=== PATIENT | female | born 1965 | race African-American/Black ===

== ENCOUNTER 2019-05-23 09:45 | Inpatient (IN) | payer BC, OTHER ==
[2019-05-23 10:27] LABS: ABSOLUTE BASOPHILS # (AUTO) 0.1 10^3/uL (0.0-0.2); ABSOLUTE EOSINOPHILS # (AUTO) 0.2 10^3/uL (0.0-0.6); ABSOLUTE LYMPHOCYTES (AUTO) 1.5 10^3/uL (0.5-4.7); ABSOLUTE MONOCYTES (AUTO) 0.5 10^3/uL (0.1-1.4); ABSOLUTE NEUT (AUTO) 9.3 10^3/uL (1.7-8.2); BASOPHILS % (AUTO) 0.5 % (0-2); EOSINOPHILS % (AUTO) 2.1 % (0-6); HEMATOCRIT 40.5 % (36.0-47.0); HEMOGLOBIN 13.3 g/dL (12.0-15.5); LYMPHOCYTES % (AUTO) 12.8 % (13-45); MEAN CORPUSCULAR HEMOGLOBIN 28.1 pg (27.0-33.4); MEAN CORPUSCULAR HGB CONC 32.8 g/dL (32.0-36.0); MEAN CORPUSCULAR VOLUME 86 fl (80-97); MONOCYTES % (AUTO) 4.4 % (3-13); PLATELET COUNT 380 10^3/uL (150-450); RED BLOOD COUNT 4.73 10^6/uL (3.72-5.28); RED CELL DISTRIBUTION WIDTH 15.2 % (11.5-14.0); SEGMENTED NEUTROPHILS % (AUTO) 80.2 % (42-78); TOTAL CELLS COUNTED % (AUTO) 100 %; WHITE BLOOD COUNT 11.6 10^3/uL (4.0-10.5)
[2019-05-23 10:35] LABS: APPEARANCE,URINE CLEAR; BILIRUBIN,URINE NEGATIVE (NEGATIVE); COLOR,URINE YELLOW; GLUCOSE, URINE NEGATIVE (NEGATIVE); KETONES,URINE NEGATIVE (NEGATIVE); LEUKOCYTE ESTERASE,URINE NEGATIVE (NEGATIVE); NITRITE,URINE NEGATIVE (NEGATIVE); PROTEIN,URINE NEGATIVE (NEGATIVE); URINE SPECIFIC GRAVITY 1.014; UROBILINOGEN,URINE NEGATIVE mg/dL (<2.0)
[2019-05-23] MEDS ORDERED: METHYLPREDNISOLONE INJ 125 MG/2 ML SDV IV ONE (10:42)
[2019-05-23] MEDS ORDERED: DIPHENHYDRAMINE HCL 50 MG/ML VIAL IV ONE (10:42)
[2019-05-23] MEDS ORDERED: NORMAL SALINE 1000 ML 1,000 ML IV ONE (10:43)
[2019-05-23] MEDS ORDERED: MORPHINE SULFATE 10 MG/ML INJ IV ONE (10:43)
[2019-05-23] MEDS ORDERED: ONDANSETRON HCL INJ/PF 4 MG/2 ML SDV IV ONE (10:43)
[2019-05-23] MEDS ORDERED: FAMOTIDINE INJ/PF 20 MG/2 ML SDV IV ONE (10:45)
--- NOTE | 2019-05-23 10:45 | ER Document Report ---
ED Medical Screen (RME) - General Chief Complaint: Abdominal Pain Stated Complaint: ABDOMINAL PAIN Time Seen by Provider: 05/23/19 10:27 Mode of Arrival: Ambulatory Information source: Patient Notes: 53-year-old female patient with multiple abdominal surgeries presenting with abdominal pain. Patient reports pain has been going on for several months but is worsened over the last few days. She reports associated nausea and she believes she had a fever yesterday. Denies any diarrhea. Exam: Generalized tenderness to palpation. Patient reports itching with IV contrast, orders placed for Solu-Medrol, Pepcid and Benadryl prior to CT scan. I have greeted and performed a rapid initial assessment of this patient. A comprehensive ED assessment and evaluation of the patient, analysis of test results and completion of the medical decision making process will be conducted by additional ED providers. I have specifically instructed the patient or family members with the patient to immediately return to any nursing staff should anything change in the patient's condition or with their chief complaint. This medical record was dictated with voice recognizing software. There may be grammatical, syntax errors that are unintended. TRAVEL OUTSIDE OF THE [place] IN LAST 30 DAYS: No - Related Data Allergies/Adverse Reactions: ampicillin [From Polycillin] Allergy (Verified 05/23/19 09:50) ciprofloxacin Allergy (Verified 05/23/19 09:50) sulfamethoxazole [From Bactrim] Allergy (Verified 05/23/19 09:50) trimethoprim [From Bactrim] Allergy (Verified 05/23/19 09:50) clarirtin Allergy (Uncoded 05/23/19 09:50) kasey Allergy (Uncoded 05/23/19 09:50) Home Medications: zofran. keflex. reglan. januvia. atorvastatin. folic acid. zyrtec. (bladder medication). omeprazole. singulair. hydroxyzine. cymbalta Past Medical History - Social History Chew tobacco use (# tins/day): No Frequency of alcohol use: None Drug Abuse: None Pulmonary Medical History: Reports: Hx Asthma Endocrine Medical History: Reports: Hx Diabetes Mellitus Type 2 Past Surgical History: Reports: Hx Appendectomy - with tumor removal, Hx Hysterectomy Physical Exam - Vital signs Vitals: Temp Pulse Resp BP Pulse Ox 98.2 F 91 16 149/92 H 96 05/23/19 09:50 05/23/19 09:50 05/23/19 09:50 05/23/19 09:50 05/23/19 09:50 Course - Vital Signs Vital signs: Temp Pulse Resp BP Pulse Ox 98.2 F 91 16 149/92 H 96 05/23/19 09:50 05/23/19 09:50 05/23/19 09:50 05/23/19 09:50 05/23/19 09:50 - Laboratory Result Diagrams: 05/23/19 10:07 05/23/19 10:07 Laboratory results interpreted by me: 05/23/19 10:07 WBC 11.6 H RDW 15.2 H Lymph % (Auto) 12.8 L Absolute Neuts (auto) 9.3 H Seg Neutrophils % 80.2 H
[2019-05-23 10:59] LABS: ALBUMIN 4.2 g/dL (3.5-5.0); ALKALINE PHOSPHATASE 161 U/L (38-126); ANION GAP 10 (5-19); ASPARTATE AMINO TRANSFERASE 25 U/L (14-36); BILIRUBIN,DIRECT 0.1 mg/dL (0.0-0.4); BILIRUBIN,TOTAL 0.6 mg/dL (0.2-1.3); BLOOD UREA NITROGEN 12 mg/dL (7-20); CALCIUM 9.4 mg/dL (8.4-10.2); CARBON DIOXIDE 27 mmol/L (22-30); CHLORIDE 103 mmol/L (98-107); GLUCOSE 218 mg/dL (75-110); POTASSIUM 4.8 mmol/L (3.6-5.0); TOTAL PROTEIN 7.5 g/dL (6.3-8.2)
--- NOTE | 2019-05-23 12:16 | ER Document Report ---
ED General - General Chief Complaint: Abdominal Pain Stated Complaint: ABDOMINAL PAIN Time Seen by Provider: 05/23/19 10:27 Mode of Arrival: Ambulatory TRAVEL OUTSIDE OF THE [place] IN LAST 30 DAYS: No - HPI Notes: Ms. Rodriguez is a 53-year-old female visiting here from [place] with a chief complaint of acute exacerbation of chronic abdominal pain. This lady has a rather complicated medical history. 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 She subsequently had a secondary procedure of some type apparently for metastasis and ended up with a partial colectomy. Since then she has progressed to episodes of severe chronic recurrent abdominal pain. She has been extensively worked up by GI and apparently recently had an EGD which showed a large hiatal hernia. They have been giving her symptomatic treatment for this but have failed to adequately relieve her pain. She is currently not taking any narcotic analgesics by history. She drove down here from [place] 3 days ago. She has had no bowel movement since then and now reports she is having increasing pain in the left upper quadrant of her abdomen radiating through to her back. She is been nauseated but has not vomited. She denies fever chills. She denies current urinary symptoms but says she has been subject to recurrent UTIs previously. Other previous abdominal surgery has included hysterectomy and cholecystectomy. Pertinent prior history: Diabetes mellitus type 2 and hypertension. Denies use of tobacco or alcohol. - Related Data Allergies/Adverse Reactions: ampicillin [From Polycillin] Allergy (Verified 05/23/19 09:50) ciprofloxacin Allergy (Verified 05/23/19 09:50) sulfamethoxazole [From Bactrim] Allergy (Verified 05/23/19 09:50) trimethoprim [From Bactrim] Allergy (Verified 05/23/19 09:50) clarirtin Allergy (Uncoded 05/23/19 09:50) kasey Allergy (Uncoded 05/23/19 09:50) Home Medications: zofran. keflex. reglan. januvia. atorvastatin. folic acid. zyrtec. (bladder medication). omeprazole. singulair. hydroxyzine. cymbalta Past Medical History - General Information source: Patient, Relative - Social History Smoking Status: Never Smoker Chew tobacco use (# tins/day): No Frequency of alcohol use: None Drug Abuse: None Family History: Reviewed & Not Pertinent Patient has suicidal ideation: No Patient has homicidal ideation: No Pulmonary Medical History: Reports: Hx Asthma Endocrine Medical History: Reports: Hx Diabetes Mellitus Type 2 Psychiatric Medical History: Reports: Hx Depression Past Surgical History: Reports: Hx Appendectomy - with tumor removal, Hx Hysterectomy Review of Systems - Review of Systems Notes: Constitutional: Negative for fever. HENT: Negative for sore throat. Eyes: Negative for visual changes. Cardiovascular: Negative for chest pain. Respiratory: Negative for shortness of breath. Gastrointestinal: As per HPI . Genitourinary: As per HPI. Musculoskeletal: Negative for back pain. Skin: Negative for rash. Neurological: Negative for headaches, weakness or numbness. 10 point ROS negative except as marked above and in HPI. Physical Exam - Vital signs Vitals: Temp Pulse Resp BP Pulse Ox 98.2 F 91 16 149/92 H 96 05/23/19 09:50 05/23/19 09:50 05/23/19 09:50 05/23/19 09:50 05/23/19 09:50 - Notes Notes: GENERAL: Obese female appearing approximately her stated age who appears in mild discomfort. SKIN: Good turgor no rashes. HEAD: Normocephalic atraumatic. EYES: PERRLA. Conjunctivae and sclerae clear. EARS: CANALS AND TMS CLEAR. NOSE: CLEAR. MOUTH: Moist mucosa. Good dentition. No stridor or edema. No drooling. NECK: Supple. No masses or thyromegaly. No adenopathy. Carotids 2+ without bruits. No JVD. BACK: Symmetrical without tenderness. CHEST: Respirations unlabored. Breath sounds clear and symmetrical. HEART: Regular rhythm. No murmur gallop or rub. ABDOMEN: Multiple surgical scars present. Tenderness left upper quadrant. Active bowel sounds. No palpable masses organomegaly. No bruits. GENITALIA: Deferred. EXTREMITIES: 2+ brawny edema both lower legs consistent with chronic lymphedema. No calf tenderness. Cap refill less than 1.5 seconds. Dorsalis pedis and posterior tibial pulses 3+ and symmetrical. NEUROLOGICAL: GCS 15. Alert and oriented x3. Normal gait. Fluent speech. Cranial nerves II through XII intact. Sensorimotor and cerebellar normal. Normal tone. Psychiatric: Very flat affect. Course - Re-evaluation Re-evalutation: 05/23/19 17:18 Patient is received normal saline IV and remain n.p.o. while in the emergency department. White count was mildly elevated. She was noted to be somewhat tender in her left upper quadrant but did not have rebound. She is remained hemodynamically stable and afebrile. Comprehensive metabolic profile was unremarkable. CT abdomen/pelvis with IV and oral contrast suggests postsurgical changes and early partial small bowel obstruction. NG tube been placed and patient has been given additional IV fentanyl. Surgical consultation obtained with Dr. Mckinley who will admit the patient. - Vital Signs Vital signs: Temp Pulse Resp BP Pulse Ox 98.2 F 91 17 130/70 H 94 05/23/19 09:50 05/23/19 09:50 05/23/19 16:01 05/23/19 16:01 05/23/19 16:01 - Laboratory Result Diagrams: 05/23/19 10:07 05/23/19 10:07 Laboratory results interpreted by me: 05/23/19 05/23/19 10:07 10:07 WBC 11.6 H RDW 15.2 H Lymph % (Auto) 12.8 L Absolute Neuts (auto) 9.3 H Seg Neutrophils % 80.2 H Glucose 218 H Alkaline Phosphatase 161 H - EKG Interpretation by Me Additional EKG results interpreted by me: 05/23/19 13:29 Normal sinus rhythm. Rate 85. Normal axis. No acute ST/T wave changes. Discharge - Discharge Clinical Impression: Small bowel obstruction Condition: Good Disposition: ADMITTED INPATIENT Admitting Provider: Surgicalist Unit Admitted: Surgical Floor
[2019-05-23] MEDS: FENTANYL CITRATE INJ/PF 100 MCG/2 ML AMPUL IV PRN ×2 (13:48→17:21)
--- NOTE | 2019-05-23 16:27 | RADIOLOGY REPORT (SQ) ---
EXAM DESCRIPTION: CT ABD/PELVIS WITH IV ONLY COMPLETED DATE/TIME: 05/23/2019 1:24 pm REASON FOR STUDY: abdominal pain COMPARISON: None. TECHNIQUE: CT scan of the abdomen and pelvis performed using helical scanning technique with dynamic intravenous contrast injection. No oral contrast. Images reviewed with lung, soft tissue, and bone w indows. Reconstructed coronal and sagittal MPR images reviewed. Delayed images for evaluation of the urinary system also acquired. All images stored on PACS. All CT scanners at this facility use dose modulation, iterative reconstruction, and/or weight based d osing when appropriate to reduce radiation dose to as low as reasonably achievable (ALARA). [facility]: Dose Right [facility]: CareDose [facility]: Dose Right [facility]: Teradose 4D [facility]: Spotlime CONTRAST TYPE AND DOSE: contrast/concentration: Isovue 350.00 mg/ml; Total Contrast Delivered: 99.0 ml; Total Saline Delivered: 69.0 ml RENAL FUNCTION: GFR > 60. RADIATION DOSE: CT Rad equipment meets quality standard of care and radiation dose reduction techniq ues were employed. CTDIvol: 21.1 mGy. DLP: 3124 mGy-cm.. LIMITATIONS: None. FINDINGS: LOWER CHEST: No significant findings. LIVER: Normal size. No enhancing masses. No dilated ducts. SPLEEN: Normal size. No focal lesions. PANCREAS: No masses identified. No significant calcifications. No adjacent inflammation or peripancre atic fluid collections. Pancreatic duct not dilated. GALLBLADDER: Surgically absent. ADRENAL GLANDS: No significant masses. RIGHT KIDNEY AND URETER: No cysts identified. No solid masses identified. No calcified stones. No hyd ronephrosis or hydroureter. LEFT KIDNEY AND URETER: No cysts identified. No solid masses identified. No calcified stones. No hydr onephrosis or hydroureter. AORTA AND VESSELS: No aneurysm. No dissection. Renal arteries, SMA, celiac without significant stenos is. RETROPERITONEUM: No bulky retroperitoneal adenopathy. BOWEL AND PERITONEAL CAVITY: Possible developing small bowel obstruction. Mildly dilated loops of je junum deep to the umbilicus level with mild adjacent inflammatory changes and trace free fluid. APPENDIX: Surgically absent. PELVIS: Prior hysterectomy. Trace free fluid. Unremarkable bladder. ABDOMINAL WALL: No masses. No hernias. BONES: No acute findings. OTHER: No other significant finding. IMPRESSION: Possible developing small bowel obstruction. Mildly dilated loops of jejunum deep to th e umbilicus level with mild adjacent inflammatory changes and trace free fluid. COMMENT: The findings were sent to the Radiology Results Communication Center at 16:21 on to be communicated to a licensed caregiver. TECHNICAL DOCUMENTATION: JOB ID: [id number] [place]-72 Quality ID # [id number]: Final reports with documentation of one or more dose reduction techniques (e.g., Au tomated exposure control, adjustment of the mA and/or kV according to patient size, use of iterative reconstruction technique) 2010 [employer]- All Rights Reserved Reading location - IP/workstation name: [employer]
[2019-05-23] MEDS ORDERED: ONDANSETRON HCL INJ/PF 4 MG/2 ML SDV IV PRN (18:20)
[2019-05-23] MEDS ORDERED: DEXTROSE 50%-WATER 25 GM/50 ML DISP.SYRIN IV PRN ×4 (18:20→18:22)
[2019-05-23] MEDS ORDERED: GLUCAGON,HUMAN RECOMB 1 MG INJ SUBCUT PRN (18:20)
[2019-05-23] MEDS ORDERED: DEXTROSE 40% GEL 15 GM TUBE PO PRN ×4 (18:20→18:22)
[2019-05-23] MEDS ORDERED: GLUCAGON,HUMAN RECOMB 1 MG INJ IM PRN (18:22)
[2019-05-23] MEDS ORDERED: ALBUTEROL SULFATE 0.083% NEB 2.5 MG/3 ML AMPUL NEB PRN (18:41)
[2019-05-23] MEDS ORDERED: HYDRALAZINE HCL INJ/PF 20 MG/1 ML SDV IV PRN (18:43)
[2019-05-23] MEDS ORDERED: PHENOL/SODIUM PHENOLATE 100 SPRAY/177 ML BOTTLE PO PRN (18:43)
--- NOTE | 2019-05-23 18:53 | PDOC CONSULTATION ---
Consultation Consult Date: 05/23/19 Provider Consulted: JACE HOSKINS History of Present Illness Admission Date/PCP: 05/23/19 17:37 Patient complains of: Abdominal pain, nausea History of Present Illness: LEILANI YADAV is a 53 year old female with a past medical history of DM 2, asthma, hyperlipidemia, GERD, anemia, and morbid obesity who presented to the emergency department today with abdominal discomfort with nausea and several days of uncontrolled blood sugars. She has been admitted to the surgical service for a small bowel obstruction; hospitalist are consulted for medical management. Patient was seen while still in the emergency department. She was found sitting upright, comfortably, on room air. Her primary complaint at this time is NG tube discomfort which was relieved slightly with better positioning/taping of the tube. She does describe several days of uncontrolled blood sugars in the 200-300s. Takes Januvia only for management. She denies fever, chills, chest pain, palpitations, dyspnea. She has no questions or concerns at this time. Past Medical History Cardiac Medical History: Reports: Hyperlipidema Pulmonary Medical History: Reports: Asthma EENT Medical History: Reports: None Neurological Medical History: Reports: None Endocrine Medical History: Reports: Diabetes Mellitus Type 2, Obesity Malignancy Medical History: Reports: Colorectal Cancer GI Medical History: Reports: Gastroesophageal Reflux Disease Musculoskeltal Medical History: Reports: None Skin Medical History: Reports: None Psychiatric Medical History: Reports: Depression Hematology: Reports: Anemia Infectious Medical History: Reports: None Past Surgical History Past Surgical History: Reports: Appendectomy - with tumor removal, Hysterectomy Social History Information Source: Patient Lives with: Family Smoking Status: Never Smoker Electronic Cigarette use?: No Frequency of Alcohol Use: None Hx Recreational Drug Use: No Hx Prescription Drug Abuse: No - Advance Directive Resuscitation Status: Full Code Family History Family History: Reviewed & Not Pertinent Parental Family History Reviewed: Yes Children Family History Reviewed: Yes Sibling(s) Family History Reviewed.: Yes Medication/Allergy Allergies/Adverse Reactions: ampicillin [From Polycillin] Allergy (Verified 05/23/19 09:50) ciprofloxacin Allergy (Verified 05/23/19 09:50) sulfamethoxazole [From Bactrim] Allergy (Verified 05/23/19 09:50) trimethoprim [From Bactrim] Allergy (Verified 05/23/19 09:50) clarirtin Allergy (Uncoded 05/23/19 09:50) kasey Allergy (Uncoded 05/23/19 09:50) Review of Systems Constitutional: ABSENT: chills, fever(s), headache(s), weight gain, weight loss Eyes: ABSENT: visual disturbances Ears: ABSENT: hearing changes Cardiovascular: ABSENT: chest pain, dyspnea on exertion, edema, orthropnea, palpitations Respiratory: ABSENT: cough, hemoptysis Gastrointestinal: PRESENT: as per HPI, abdominal pain, nausea. ABSENT: constipation, diarrhea, hematemesis, hematochezia, vomiting Genitourinary: ABSENT: dysuria, hematuria Musculoskeletal: ABSENT: joint swelling Integumentary: ABSENT: rash, wounds Neurological: ABSENT: abnormal gait, abnormal speech, confusion, dizziness, focal weakness, syncope Psychiatric: ABSENT: anxiety, depression, homidical ideation, suicidal ideation Endocrine: ABSENT: cold intolerance, heat intolerance, polydipsia, polyuria Hematologic/Lymphatic: ABSENT: easy bleeding, easy bruising Physical Exam Vital Signs: Temp Pulse Resp BP Pulse Ox 98.2 F 91 21 H 142/79 H 94 05/23/19 09:50 05/23/19 09:50 05/23/19 18:03 05/23/19 18:03 05/23/19 18:03 Intake & Output 05/22/19 05/23/19 05/24/19 06:59 06:59 06:59 Intake Total 1000 Output Total 20 Balance 980 Weight 179.5 kg General appearance: PRESENT: no acute distress, cooperative, morbidly obese, well-developed, well-nourished Head exam: PRESENT: atraumatic, normocephalic Eye exam: PRESENT: conjunctiva pink, EOMI, PERRLA. ABSENT: scleral icterus Ear exam: PRESENT: normal external ear exam Mouth exam: PRESENT: moist, tongue midline Neck exam: ABSENT: carotid bruit, JVD, lymphadenopathy, thyromegaly Respiratory exam: PRESENT: clear to auscultation daphne, symmetrical, unlabored. ABSENT: rales, rhonchi, wheezes Cardiovascular exam: PRESENT: RRR, +S2. ABSENT: diastolic murmur, rubs, systolic murmur Pulses: PRESENT: normal dorsalis pedis pul Vascular exam: PRESENT: normal capillary refill GI/Abdominal exam: PRESENT: hypoactive bowel sounds, soft, tenderness. ABSENT: distended, guarding, mass, organolmegaly, rebound Rectal exam: PRESENT: deferred Extremities exam: PRESENT: full ROM. ABSENT: calf tenderness, clubbing, pedal edema Neurological exam: PRESENT: alert, awake, oriented to person, oriented to place, oriented to time, oriented to situation, CN II-XII grossly intact. ABSENT: motor sensory deficit Psychiatric exam: PRESENT: anxious, appropriate affect. ABSENT: homicidal ideation, suicidal ideation Skin exam: PRESENT: dry, intact, warm. ABSENT: cyanosis, rash Results Laboratory Results: 05/23/19 10:07 05/23/19 10:07 05/23/19 05/23/19 05/23/19 10:07 10:07 10:07 WBC 11.6 H RBC 4.73 Hgb 13.3 Hct 40.5 MCV 86 MCH 28.1 MCHC 32.8 RDW 15.2 H Plt Count 380 Seg Neutrophils % 80.2 H Sodium 139.5 Potassium 4.8 Chloride 103 Carbon Dioxide 27 Anion Gap 10 BUN 12 Creatinine 0.63 Est GFR ( Amer) > 60 Glucose 218 H Calcium 9.4 Total Bilirubin 0.6 AST 25 Alkaline Phosphatase 161 H Total Protein 7.5 Albumin 4.2 Lipase 38.4 Urine Color YELLOW Urine Appearance CLEAR Urine pH 8.0 Ur Specific [place] 1.014 Urine Protein NEGATIVE Urine Glucose (UA) NEGATIVE Urine Ketones NEGATIVE Urine Blood NEGATIVE Urine Nitrite NEGATIVE Ur Leukocyte Esterase NEGATIVE Urine WBC (Auto) 0 Urine RBC (Auto) 1 Impressions: Abdomen/Pelvis CT 05/23/19 10:42 IMPRESSION: Possible developing small bowel obstruction. Mildly dilated loops of jejunum deep to the umbilicus level with mild adjacent inflammatory changes and trace free fluid. Assessment and Plan - Diagnosis (1) Small bowel obstruction Is this a current diagnosis for this admission?: Yes Plan: Managment per surgical service. (2) DM type 2 (diabetes mellitus, type 2) Qualifiers: Diabetes mellitus terminal clerk insulin use: without shelter use Diabetes mellitus complication status: with hyperglycemia Qualified Code(s): E11.65 - Type 2 diabetes mellitus with hyperglycemia Is this a current diagnosis for this admission?: Yes Plan: The patient's oral diabetic medications are placed on hold. She is currently in n.p.o. status secondary to small bowel obstruction. Accu-Cheks every 6 hours with Humalog for sliding scale coverage. Hypoglycemia protocol in place. A1c pending. (3) Asthma Qualifiers: Asthma severity: mild Asthma persistence: intermittent Asthma complication type: uncomplicated Qualified Code(s): J45.20 - Mild intermittent asthma, uncomplicated Is this a current diagnosis for this admission?: Yes Plan: Patient utilizes Advair at home; will continue Breo (which is nonformulary here). Albuterol nebulizer treatments as needed. Supplemental oxygen as needed maintain saturations greater than 89%. Aggressive pulmonary toilet; incentive spirometer to bedside, early ambulation. (4) GERD (gastroesophageal reflux disease) Is this a current diagnosis for this admission?: Yes Plan: IV Protonix (5) Morbid obesity with BMI of 50.0-59.9, adult Is this a current diagnosis for this admission?: Yes Plan: BMI 56.8 Currently n.p.o. Patient should be advanced to a consistent carb/cardiac diet when approved by surgery. Dietary discretion and lifestyle modification are encouraged. - Time Time Spent with patient: 25-34 minutes Medications reviewed and adjusted accordingly: Yes
[2019-05-23] MEDS: NORMAL SALINE 1000 ML 1,000 ML IV PRN (19:00)
--- NOTE | 2019-05-23 19:08 | RADIOLOGY REPORT (SQ) ---
EXAM DESCRIPTION: KUB/ABDOMEN (SINGLE VIEW) COMPLETED DATE/TIME: 05/23/2019 6:51 pm REASON FOR STUDY: NG placement COMPARISON: None. NUMBER OF VIEWS: One view. TECHNIQUE: Supine radiographic image of the abdomen acquired. LIMITATIONS: None. FINDINGS: NG tube tip overlies the body of the stomach. OTHER: No other significant finding. IMPRESSION: NG tube tip overlies the body of the stomach. TECHNICAL DOCUMENTATION: JOB ID: [id number] [place]-72 2010 [email or web address]- All Rights Reserved Reading location - IP/workstation name: [facility]
[2019-05-23] MEDS ORDERED: GLYCERIN 99.5% (ANHYDROUS) 177 ML PO PRN (19:33)
[2019-05-23] MEDS ORDERED: MINERAL OIL ENEMA 133 ML PR ONE ×2 (21:00→21:21)
[2019-05-23] MEDS ORDERED: GLYCERIN (ADULT) SUPP.RECT PR ONE (21:23)
--- NOTE | 2019-05-23 21:28 | EKG REPORT ---
SEVERITY:- NORMAL ECG - SINUS RHYTHM : Confirmed by: Poly Roberto 23-May-2019 21:26:58
[2019-05-23] MEDS ORDERED: PHENOL/SODIUM PHENOLATE 100 SPRAY/177 ML BOTTLE ONE (22:10)
[2019-05-23] MEDS: MORPHINE SULFATE 10 MG/ML INJ IV PRN (23:18)
[2019-05-24] MEDS: INSULIN LISPRO 100 UNIT/ML 3 ML VIAL SUBCUT SCH ×5 (00:29→22:06)
[2019-05-24] MEDS ORDERED: DIPHENHYDRAMINE HCL 25 MG CAPSULE PO ONE (00:45)
[2019-05-24] MEDS ORDERED: DIPHENHYDRAMINE HCL 50 MG/ML VIAL IV ONE (01:30)
[2019-05-24] MEDS: NORMAL SALINE 1000 ML 1,000 ML IV PRN (05:09)
[2019-05-24] MEDS: MORPHINE SULFATE 10 MG/ML INJ IV PRN ×2 (05:09→14:59)
[2019-05-24 05:41] LABS: ABSOLUTE LYMPHOCYTES (AUTO) 1.2 10^3/uL (0.5-4.7); ABSOLUTE MONOCYTES (AUTO) 0.3 10^3/uL (0.1-1.4); ABSOLUTE NEUT (AUTO) 7.9 10^3/uL (1.7-8.2); BASOPHILS % (AUTO) 0.4 % (0-2); HEMOGLOBIN 12.9 g/dL (12.0-15.5); LYMPHOCYTES % (AUTO) 12.7 % (13-45); MEAN CORPUSCULAR HEMOGLOBIN 28.3 pg (27.0-33.4); MEAN CORPUSCULAR HGB CONC 32.9 g/dL (32.0-36.0); MEAN CORPUSCULAR VOLUME 86 fl (80-97); MONOCYTES % (AUTO) 3.2 % (3-13); PLATELET COUNT 375 10^3/uL (150-450); RED BLOOD COUNT 4.54 10^6/uL (3.72-5.28); RED CELL DISTRIBUTION WIDTH 14.9 % (11.5-14.0); SEGMENTED NEUTROPHILS % (AUTO) 83.7 % (42-78); TOTAL CELLS COUNTED % (AUTO) 100 %; WHITE BLOOD COUNT 9.5 10^3/uL (4.0-10.5)
[2019-05-24 05:53] LABS: ANION GAP 14 (5-19); BLOOD UREA NITROGEN 11 mg/dL (7-20); CALCIUM 9.5 mg/dL (8.4-10.2); CARBON DIOXIDE 25 mmol/L (22-30); CHLORIDE 101 mmol/L (98-107); GLUCOSE 219 mg/dL (75-110); POTASSIUM 4.7 mmol/L (3.6-5.0)
--- NOTE | 2019-05-24 07:19 | PDOC H&P ---
History of Present Illness Admission Date/PCP: 05/23/19 17:37 Patient complains of: Abdominal pain History of Present Illness: LEILANI YADAV is a 53 year old female with a long history of chronic abdominal pain, chronic constipation, gastroparesis, and a known ventral hernia. Patient is in town visiting family, and reports increasing amounts of abdominal pain. She reports a aching burning sensation in the epigastric area, radiating to all 4 quadrants. She reports nausea, but denies vomiting. She has not had a bowel movement in 3 days. The patient was evaluated in the emergency department. She has a CT scan suggestive of "early partial small bowel obstruction". Patient was admitted to the surgical service to evaluate and treat her possible bowel obstruction. She also reports diabetes. She reports that her blood glucose reaches 300 at times. At present she denies chest pain, shortness of breath, fevers, chills, headache, dizziness, blurry vision, orthostasis, malaise, or fatigue. She also denies hematemesis, melena, hematochezia. Past Medical History Pulmonary Medical History: Reports: Asthma Endocrine Medical History: Reports: Diabetes Mellitus Type 2 Psychiatric Medical History: Reports: Depression Past Surgical History Past Surgical History: Reports: Appendectomy - with tumor removal, Hysterectomy Social History Smoking Status: Never Smoker Electronic Cigarette use?: No Family History Family History: Reviewed & Not Pertinent Parental Family History Reviewed: Yes Children Family History Reviewed: Yes Sibling(s) Family History Reviewed.: Yes Medication/Allergy Allergies/Adverse Reactions: ampicillin [From Polycillin] Allergy (Verified 05/23/19 09:50) ciprofloxacin Allergy (Verified 05/23/19 09:50) sulfamethoxazole [From Bactrim] Allergy (Verified 05/23/19 09:50) trimethoprim [From Bactrim] Allergy (Verified 05/23/19 09:50) clarirtin Allergy (Uncoded 05/23/19 09:50) kasey Allergy (Uncoded 05/23/19 09:50) Review of Systems Constitutional: ABSENT: anorexia, chills, fatigue, weakness Eyes: ABSENT: visual disturbances Ears: ABSENT: hearing changes Nose, Mouth, and Throat: ABSENT: sore throat Cardiovascular: ABSENT: chest pain Respiratory: ABSENT: cough Gastrointestinal: PRESENT: abdominal pain, constipation. ABSENT: hematemesis, hematochezia, melena, vomiting Musculoskeletal: ABSENT: back pain Integumentary: ABSENT: pruritus, rash Neurological: ABSENT: confusion, convulsions, dizziness Psychiatric: ABSENT: anxiety, depression Endocrine: ABSENT: cold intolerance, heat intolerance Hematologic/Lymphatic: ABSENT: easy bleeding, easy bruising Physical Exam Vital Signs: Temp Pulse Resp BP Pulse Ox 98.2 F 91 17 130/70 H 94 05/23/19 09:50 05/23/19 09:50 05/23/19 16:01 05/23/19 16:01 05/23/19 16:01 Intake & Output 05/22/19 05/23/19 05/24/19 06:59 06:59 06:59 Intake Total 1000 Output Total 20 Balance 980 Weight 179.5 kg General appearance: PRESENT: morbidly obese Head exam: PRESENT: atraumatic, normocephalic Eye exam: PRESENT: EOMI, PERRLA. ABSENT: scleral icterus Mouth exam: PRESENT: moist, neck supple Neck exam: ABSENT: meningismus, tenderness, thyromegaly, tracheal deviation Respiratory exam: PRESENT: clear to auscultation daphne. ABSENT: chest wall tenderness Cardiovascular exam: PRESENT: RRR Pulses: PRESENT: normal radial pulses Vascular exam: PRESENT: normal capillary refill GI/Abdominal exam: PRESENT: soft, tenderness - minimal, other - ventral hernia present. ABSENT: distended, firm, guarding, hernia Rectal exam: PRESENT: deferred Extremities exam: ABSENT: clubbing Musculoskeletal exam: ABSENT: deformity Neurological exam: PRESENT: alert, awake, oriented to person, oriented to place, oriented to time, oriented to situation, CN II-XII grossly intact Psychiatric exam: ABSENT: agitated, anxious, depressed Focused psych exam: ABSENT: delusional Skin exam: ABSENT: cyanosis, erythema, jaundice Results Laboratory Results: 05/23/19 10:07 05/23/19 10:07 05/23/19 05/23/19 05/23/19 10:07 10:07 10:07 WBC 11.6 H RBC 4.73 Hgb 13.3 Hct 40.5 MCV 86 MCH 28.1 MCHC 32.8 RDW 15.2 H Plt Count 380 Seg Neutrophils % 80.2 H Sodium 139.5 Potassium 4.8 Chloride 103 Carbon Dioxide 27 Anion Gap 10 BUN 12 Creatinine 0.63 Est GFR ( Amer) > 60 Glucose 218 H Calcium 9.4 Total Bilirubin 0.6 AST 25 Alkaline Phosphatase 161 H Total Protein 7.5 Albumin 4.2 Lipase 38.4 Urine Color YELLOW Urine Appearance CLEAR Urine pH 8.0 Ur Specific [place] 1.014 Urine Protein NEGATIVE Urine Glucose (UA) NEGATIVE Urine Ketones NEGATIVE Urine Blood NEGATIVE Urine Nitrite NEGATIVE Ur Leukocyte Esterase NEGATIVE Urine WBC (Auto) 0 Urine RBC (Auto) 1 Impressions: Abdomen/Pelvis CT 05/23/19 10:42 IMPRESSION: Possible developing small bowel obstruction. Mildly dilated loops of jejunum deep to the umbilicus level with mild adjacent inflammatory changes and trace free fluid. Assessment & Plan - Diagnosis (1) Abdominal pain Qualifiers: Abdominal location: generalized Qualified Code(s): R10.84 - Generalized abdominal pain Is this a current diagnosis for this admission?: Yes - Plan Summary Plan Summary: This is a 53-year-old morbidly obese female with multiple medical problems and a long history of abdominal pain. She has gastroparesis, chronic constipation, and a known ventral hernia. She has a CT scan which the radiologist is read as "possible early small bowel obstruction". I am not impressed by the level of small bowel distention. I do not believe the patient has a small bowel obstruction. Patient has a large amount of stool in the transverse and proximal descending colon. I believe the patient is suffering from chronic constipation, superimposed over a painful ventral hernia. She has no transition zone. She has no small bowel dilatation. I will order an enema to help induce a bowel movement. I will order a small bowel follow-through with Gastrografin to image her small bowel, and evaluate for obstruction. If she begins having bowel movements, and obstruction can be ruled out. Further recommendations will depend on the patient's clinical course.
[2019-05-24] MEDS: METOCLOPRAMIDE HCL INJ/PF 10 MG/2 ML SDV IV SCH ×3 (07:38→17:21)
[2019-05-24] MEDS: PANTOPRAZOLE SODIUM 40 MG VIAL IV SCH (09:17)
[2019-05-24] MEDS: ENOXAPARIN SODIUM INJ 40 MG/0.4 ML DISP.SYRIN SUBCUT SCH (09:18)
[2019-05-24] MEDS: FLUTICASONE/VILANTEROL 100-25 MCG/DOSE IH SCH (09:22)
[2019-05-24] MEDS ORDERED: DIPHENHYDRAMINE HCL 50 MG/ML VIAL IV PRN (10:28)
--- NOTE | 2019-05-24 13:10 | RADIOLOGY REPORT (SQ) ---
EXAM DESCRIPTION: UPPER GI/SM BOWEL COMPLETED DATE/TIME: 05/24/2019 12:47 pm REASON FOR STUDY: possible bowel obstruction. Plz use gastroraffin abdominal pain COMPARISON: CT of the abdomen dated 05/23/2019. TECHNIQUE: Under fluoroscopic guidance, patient ingested water soluble contrast. Fluoroscopic spot images and routine radiographic images acquired and stored on PACS. Following evaluation of esophagus and stomach, additional barium administered with serial delayed abd ominal radiographs until colonic identification. Fluoroscopic images recorded of the terminal ileum. 12 MM BARIUM TABLET GIVEN: No. FLUOROSCOPY TIME: 2 minutes 5 seconds 25 images saved to PACS. LIMITATIONS: Body habitus. NG tube in the stomach. FINDINGS: NEUROMUSCULAR COORDINATION OF SWALLOW: Not evaluated due to NG-tube. ESOPHAGEAL MOTILITY: Not evaluated due to NG-tube. 12 MM TABLET TRANSIT TIME: Not evaluated due to NG-tube. ESOPHAGEAL MUCOSA: Not evaluated due to NG-tube. GASTRO-ESOPHAGEAL JUNCTION: Not evaluated due to NG-tube. STOMACH: NG tube in the stomach. Normal without masses or ulcerations. GASTRIC OUTLET: No delay in emptying. Normal pylorus. DUODENAL BULB: Normal distention. No spasm or ulceration. DUODENUM: Mucosa normal. No extrinsic masses or malrotation. PROXIMAL SMALL BOWEL: Normal as visualized. JEJUNUM: Normal mucosal pattern. No dilatation, segmentation, strictures or masses. ILEUM: Normal mucosal pattern. No dilatation, segmentation, strictures or masses. TERMINAL ILEUM AND ILEO-CECAL VALVE: Normal mucosal pattern without cobble-stoning or stricture. Nor mal compression. PROXIMAL COLON: Surgical clips right lower quadrant from prior right hemicolectomy. NON-GI TRACT STRUCTURES: No significant finding. OTHER: No other significant finding. IMPRESSION: Esophagus not evaluated due to NG-tube. Patient reports having hiatal hernia which was not evaluated due to NG-tube. NG tube in the stomach. Surgical clip in the you are right lower quad rant. 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 Contrast is s een in the colon. No evidence small bowel obstruction COMMENT: Quality ID [id number]: Final reports for procedures using fluoroscopy that document radiation exp osure indices, or exposure time and number of fluorographic images (if radiation exposure indices are not available) TECHNICAL DOCUMENTATION: JOB ID: [id number] [email or web address]- All Rights Reserved Reading location - IP[facility]workstation name: [email or web address]
[2019-05-24] MEDS: FENTANYL CITRATE INJ/PF 100 MCG/2 ML AMPUL IV PRN (13:36)
--- NOTE | 2019-05-24 15:41 | PDOC PROGRESS REPORT ---
Subjective Progress Note for:: 05/24/19 Subjective:: LEILANI YADAV is a 53 year old female with a past medical history of DM 2, asthma, hyperlipidemia, GERD, anemia, and morbid obesity who was admitted 05/23/19 to the surgicalist service for a SBO. The patient was seen on afternoon rounds with family members present. She was found resting in bed, comfortably, on room air. She does report epigastric abdominal discomfort with dyspepsia, but overall is improved as compared to yesterday. She denies nausea vomiting. She has had a bowel movement. She denies fever, chills, chest pain, palpitations, dyspnea, orthopnea. She has no new questions or concerns. No concerns per nursing. Reason For Visit: ABDOMINAL PAIN,SMALL BOWEL OBSTRUCTION Physical Exam Vital Signs: Temp Pulse Resp BP Pulse Ox 97.2 F 78 12 139/61 H 96 05/24/19 10:53 05/24/19 10:53 05/24/19 10:53 05/24/19 10:53 05/24/19 10:53 Intake & Output 05/23/19 05/24/19 05/25/19 06:59 06:59 06:59 Intake Total 2130 Output Total 670 Balance 1460 Weight 179.5 kg General appearance: PRESENT: no acute distress, cooperative, morbidly obese, well-developed, well-nourished Head exam: PRESENT: atraumatic, normocephalic Eye exam: PRESENT: conjunctiva pink, EOMI, PERRLA. ABSENT: scleral icterus Ear exam: PRESENT: normal external ear exam Mouth exam: PRESENT: moist, tongue midline Respiratory exam: PRESENT: clear to auscultation daphne, symmetrical, unlabored. ABSENT: rales, rhonchi, wheezes Cardiovascular exam: PRESENT: RRR. ABSENT: diastolic murmur, rubs, systolic murmur Pulses: PRESENT: normal dorsalis pedis pul Vascular exam: PRESENT: normal capillary refill GI/Abdominal exam: PRESENT: normal bowel sounds, soft, tenderness. ABSENT: distended, guarding, mass, organolmegaly, rebound Rectal exam: PRESENT: deferred Extremities exam: PRESENT: full ROM. ABSENT: calf tenderness, clubbing, pedal edema Neurological exam: PRESENT: alert, awake, oriented to person, oriented to place, oriented to time, oriented to situation, CN II-XII grossly intact. ABSENT: motor sensory deficit Psychiatric exam: PRESENT: appropriate affect, normal mood. ABSENT: homicidal ideation, suicidal ideation Skin exam: PRESENT: dry, intact, warm. ABSENT: cyanosis, rash Results Laboratory Results: 05/24/19 04:55 05/24/19 04:55 05/24/19 05/24/19 04:55 04:55 WBC 9.5 RBC 4.54 Hgb 12.9 Hct 39.0 MCV 86 MCH 28.3 MCHC 32.9 RDW 14.9 H Plt Count 375 Seg Neutrophils % 83.7 H Sodium 140.2 Potassium 4.7 Chloride 101 Carbon Dioxide 25 Anion Gap 14 BUN 11 Creatinine 0.60 Est GFR ( Amer) > 60 Glucose 219 H Calcium 9.5 Impressions: KUB X-Ray 05/23/19 00:00 IMPRESSION: NG tube tip overlies the body of the stomach. Abdomen/Pelvis CT 05/23/19 10:42 IMPRESSION: Possible developing small bowel obstruction. Mildly dilated loops of jejunum deep to the umbilicus level with mild adjacent inflammatory changes and trace free fluid. Assessment and Plan - Diagnosis (1) Small bowel obstruction Is this a current diagnosis for this admission?: Yes Plan: Managment per surgical service. (2) DM type 2 (diabetes mellitus, type 2) Qualifiers: Diabetes mellitus meeting specialist insulin use: without prison use Diabetes mellitus complication status: with hyperglycemia Qualified Code(s): E11.65 - Type 2 diabetes mellitus with hyperglycemia Is this a current diagnosis for this admission?: Yes Plan: A1c 8.8% The patient's oral diabetic medications are placed on hold. Diet has been advanced per surgery Accu-Cheks before meals and at bedtime with Humalog for sliding scale coverage. Hypoglycemia protocol in place. Discussed with patient option for starting metformin or glipizide. Unf ortunately, patient states that she does not tolerate metformin at all. She also declines to start glipizide as she reports that she inconsistently eats and so is concerned about the ability to time the medication appropriately to meals. Patient does admit to drinking a lot of boost; she is advised to consider switching to Glucerna for better consistent carb control. We will also asked the registered dietitian and patient educator to meet with the patient tomorrow if available. (3) Asthma Qualifiers: Asthma severity: mild Asthma persistence: intermittent Asthma complication type: uncomplicated Qualified Code(s): J45.20 - Mild intermittent asthma, uncomplicated Is this a current diagnosis for this admission?: Yes Plan: Patient utilizes Advair at home; will continue Breo (which is nonformulary here). Albuterol nebulizer treatments as needed. Supplemental oxygen as needed maintain saturations greater than 89%. Aggressive pulmonary toilet; incentive spirometer to bedside, early ambulation. (4) GERD (gastroesophageal reflux disease) Is this a current diagnosis for this admission?: Yes Plan: IV Protonix (5) Morbid obesity with BMI of 50.0-59.9, adult Is this a current diagnosis for this admission?: Yes Plan: BMI 56.8 Currently n.p.o. Patient should be advanced to a consistent carb/cardiac diet when approved by surgery. Dietary discretion and lifestyle modification are encouraged. - Time Time Spent with patient: 15-24 minutes Medications reviewed and adjusted accordingly: Yes Anticipated discharge: Home
--- NOTE | 2019-05-24 17:26 | PDOC PROGRESS REPORT ---
Subjective Progress Note for:: 05/24/19 Subjective:: This is a 53-year-old female with chronic abdominal pain, gastroparesis, chronic constipation, and a known ventral hernia. The patient was admitted for "possible small bowel obstruction". Today she is having bowel movements. Her Gastrografin small bowel follow-through has been performed. She still complains of abdominal pain and cramping. She denies nausea or vomiting. Reason For Visit: ABDOMINAL PAIN,SMALL BOWEL OBSTRUCTION Physical Exam Vital Signs: Temp Pulse Resp BP Pulse Ox 97.2 F 78 16 139/61 H 96 05/24/19 10:53 05/24/19 16:35 05/24/19 16:35 05/24/19 10:53 05/24/19 16:35 Intake & Output 05/23/19 05/24/19 05/25/19 06:59 06:59 06:59 Intake Total 2130 Output Total 670 Balance 1460 Weight 179.5 kg General appearance: PRESENT: no acute distress, cooperative, morbidly obese Head exam: PRESENT: atraumatic, normocephalic Eye exam: PRESENT: EOMI, PERRLA Mouth exam: PRESENT: moist, neck supple Neck exam: ABSENT: meningismus, tenderness, thyromegaly, tracheal deviation Respiratory exam: PRESENT: clear to auscultation daphne. ABSENT: chest wall tenderness Pulses: PRESENT: normal radial pulses GI/Abdominal exam: PRESENT: soft, tenderness - Mild midline abdominal tenderness, other - Abdominal exam limited by morbid obesity.. ABSENT: distended, guarding, rebound, rigid Rectal exam: PRESENT: deferred Extremities exam: ABSENT: clubbing Musculoskeletal exam: ABSENT: deformity Neurological exam: PRESENT: alert, awake, oriented to person, oriented to place, oriented to time, oriented to situation Psychiatric exam: ABSENT: agitated, anxious, depressed Focused psych exam: ABSENT: delusional Skin exam: ABSENT: erythema, jaundice Results Laboratory Results: 05/24/19 04:55 05/24/19 04:55 05/24/19 05/24/19 04:55 04:55 WBC 9.5 RBC 4.54 Hgb 12.9 Hct 39.0 MCV 86 MCH 28.3 MCHC 32.9 RDW 14.9 H Plt Count 375 Seg Neutrophils % 83.7 H Sodium 140.2 Potassium 4.7 Chloride 101 Carbon Dioxide 25 Anion Gap 14 BUN 11 Creatinine 0.60 Est GFR ( Amer) > 60 Glucose 219 H Calcium 9.5 Impressions: KUB X-Ray 05/23/19 00:00 IMPRESSION: NG tube tip overlies the body of the stomach. Abdomen/Pelvis CT 05/23/19 10:42 IMPRESSION: Possible developing small bowel obstruction. Mildly dilated loops of jejunum deep to the umbilicus level with mild adjacent inflammatory changes and trace free fluid. Upper GI and Small Bowel X-Ray 05/24/19 07:00 IMPRESSION: Esophagus not evaluated due to NG-tube. Patient reports having hiatal hernia which was not evaluated due to NG-tube. NG tube in the stomach. Surgical clip in the you are right lower quadrant. 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 Contrast is seen in the colon. No evidence small bowel obstruction Assessment & Plan - Diagnosis (1) Abdominal pain Qualifiers: Abdominal location: generalized Qualified Code(s): R10.84 - Generalized abdominal pain Is this a current diagnosis for this admission?: Yes (2) Chronic constipation Is this a current diagnosis for this admission?: Yes (3) Morbid obesity with BMI of 50.0-59.9, adult Is this a current diagnosis for this admission?: Yes - Time Time Spent with patient: Less than 15 minutes - Plan Summary Plan Summary: This is a 53-year-old female with chronic abdominal pain, chronic constipation, morbid obesity, and a known ventral hernia. The patient was admitted for a "possible small bowel obstruction". The patient has undergone Gastrografin small bowel series today. I have reviewed these images. There is no evidence obstruction on small bowel series. The patient has contrast extending into the colon. The patient is currently having bowel movements. I plan to advance the patient's diet today. As long as she tolerates a diet, she may go home. At this time, the patient's BMI (56) is too high to consider ventral hernia repair. Without obvious signs of obstruction, I would avoid operative intervention in this patient. This has been discussed with the patient and her daughter at length. They have voiced understanding.
[2019-05-24] MEDS ORDERED: DULOXETINE HCL 30 MG CAPSULE.DR PO SCH (22:00)
[2019-05-24] MEDS ORDERED: MONTELUKAST SODIUM 10 MG TABLET PO SCH (22:00)
[2019-05-25] MEDS: INSULIN LISPRO 100 UNIT/ML 3 ML VIAL SUBCUT SCH ×3 (07:45→17:29)
[2019-05-25] MEDS: ENOXAPARIN SODIUM INJ 40 MG/0.4 ML DISP.SYRIN SUBCUT SCH (09:40)
[2019-05-25] MEDS: PANTOPRAZOLE SODIUM 40 MG VIAL IV SCH (09:40)
[2019-05-25] MEDS: METOCLOPRAMIDE HCL INJ/PF 10 MG/2 ML SDV IV SCH ×2 (09:40→11:47)
[2019-05-25] MEDS: FLUTICASONE/VILANTEROL 100-25 MCG/DOSE IH SCH (09:41)
[2019-05-25] MEDS ORDERED: ATORVASTATIN CALCIUM 10 MG TABLET PO SCH (10:00)
--- NOTE | 2019-05-25 11:20 | PDOC PROGRESS REPORT ---
Subjective Progress Note for:: 05/25/19 Subjective:: LEILANI YADAV is a 53 year old female with a past medical history of DM 2, asthma, hyperlipidemia, GERD, anemia, and morbid obesity who was admitted 05/23/19 to the surgicalist service for a SBO. The patient was seen on morning rounds with family members present. She was found resting in bed, comfortably, on room air. She was sleeping soundly during the visit; family member states "she is trying to rest." Did not wake patient. Per family, she tolerated the full liquid diet well and is asking to advance to regular diet. No new or worsening abdominal pain. The have no questions or concerns at this time. No concerns per nursing. Reason For Visit: ABDOMINAL PAIN,SMALL BOWEL OBSTRUCTION Physical Exam Vital Signs: Temp Pulse Resp BP Pulse Ox 98.0 F 79 18 130/52 H 93 05/25/19 08:22 05/25/19 08:22 05/25/19 08:22 05/25/19 08:22 05/25/19 08:22 Intake & Output 05/24/19 05/25/19 05/26/19 06:59 06:59 06:59 Intake Total 2130 4155 Output Total 670 3 Balance 1460 4152 Weight 179.5 kg 180.4 kg General appearance: PRESENT: no acute distress, cooperative, morbidly obese, well-developed, well-nourished Head exam: PRESENT: atraumatic, normocephalic Eye exam: PRESENT: conjunctiva pink, EOMI, PERRLA. ABSENT: scleral icterus Ear exam: PRESENT: normal external ear exam Mouth exam: PRESENT: moist, tongue midline Respiratory exam: PRESENT: clear to auscultation daphne, symmetrical, unlabored. ABSENT: rales, rhonchi, wheezes Cardiovascular exam: PRESENT: RRR, +S1, +S2. ABSENT: diastolic murmur, rubs, systolic murmur Vascular exam: PRESENT: normal capillary refill GI/Abdominal exam: PRESENT: normal bowel sounds, soft. ABSENT: distended, guarding, mass, organolmegaly, rebound, tenderness Rectal exam: PRESENT: deferred Extremities exam: PRESENT: full ROM. ABSENT: calf tenderness, clubbing, pedal edema Neurological exam: PRESENT: CN II-XII grossly intact, other - Sleeping soundly. ABSENT: motor sensory deficit Psychiatric exam: PRESENT: appropriate affect, normal mood. ABSENT: homicidal ideation, suicidal ideation Skin exam: PRESENT: dry, intact, warm. ABSENT: cyanosis, rash Results Laboratory Results: 05/24/19 04:55 05/24/19 04:55 Impressions: KUB X-Ray 05/23/19 00:00 IMPRESSION: NG tube tip overlies the body of the stomach. Abdomen/Pelvis CT 05/23/19 10:42 IMPRESSION: Possible developing small bowel obstruction. Mildly dilated loops of jejunum deep to the umbilicus level with mild adjacent inflammatory changes and trace free fluid. Upper GI and Small Bowel X-Ray 05/24/19 07:00 IMPRESSION: Esophagus not evaluated due to NG-tube. Patient reports having hiatal hernia which was not evaluated due to NG-tube. NG tube in the stomach. Surgical clip in the you are right lower quadrant. 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 Contrast is seen in the colon. No evidence small bowel obstruction Assessment and Plan - Diagnosis (1) Small bowel obstruction Is this a current diagnosis for this admission?: Yes Plan: Managment per surgical service. Has been advanced to full liquid diet. Tolerating well. Likely d/c today. (2) DM type 2 (diabetes mellitus, type 2) Qualifiers: Diabetes mellitus terminal makeup operator insulin use: without correction use Diabetes mellitus complication status: with hyperglycemia Qualified Code(s): E11.65 - Type 2 diabetes mellitus with hyperglycemia Is this a current diagnosis for this admission?: Yes Plan: A1c 8.8% The patient's oral diabetic medications are placed on hold. Diet has been advanced per surgery Accu-Cheks before meals and at bedtime with Humalog for sliding scale coverage. Hypoglycemia protocol in place. Discussed with patient option for starting metformin or glipizide. Unfo rtunately, patient states that she does not tolerate metformin at all. She also declines to start glipizide as she reports that she inconsistently eats and so is concerned about the ability to time the medication appropriately to meals. Patient does admit to drinking a lot of boost; she is advised to consider switching to Glucerna for better consistent carb control. We will also asked the registered dietitian and patient educator to meet with the patient tomorrow if available. Resume home dose metformin at discharge. Recommend outpatient follow up with PCP upon return home from vacation. (3) Asthma Qualifiers: Asthma severity: mild Asthma persistence: intermittent Asthma complication type: uncomplicated Qualified Code(s): J45.20 - Mild intermittent asthma, uncomplicated Is this a current diagnosis for this admission?: Yes Plan: Patient utilizes Advair at home; will continue Breo (which is nonformulary h ere). Albuterol nebulizer treatments as needed. Supplemental oxygen as needed maintain saturations greater than 89%. Aggressive pulmonary toilet; incentive spirometer to bedside, early ambulation. (4) GERD (gastroesophageal reflux disease) Is this a current diagnosis for this admission?: Yes Plan: IV Protonix (5) Morbid obesity with BMI of 50.0-59.9, adult Is this a current diagnosis for this admission?: Yes Plan: BMI 56.8 Currently n.p.o. Patient should be advanced to a consistent carb/cardiac diet when approved by surgery. Dietary discretion and lifestyle modification are encouraged. - Plan Summary Summary: Will sign off at this time. Please re-consult if the hospitalist service can be of further assistance. - Time Time Spent with patient: 15-24 minutes Anticipated discharge: Home
--- NOTE | 2019-05-25 14:48 | PDOC DISCHARGE SUMMARY ---
General - Admit/Disc Date/PCP Admission Date/Primary Care Provider: 05/23/19 17:37 Discharge Date: 05/25/19 - Discharge Diagnosis Final Diagnosis: Chronic constipation Type 2 diabetes - Assessment Summary: Will sign off at this time. Please re-consult if the hospitalist service can be of further assistance. Hospital course This is a morbidly obese 53-year-old female, with type 2 diabetes, admitted because of difficulty passing stools are revealed to be constipation. The patient was treated with cathartics which promoted bowel function with stools. On the day of discharge the patient is comfortable, she denies abdominal pain, vomiting, she had a bowel movement today. On physical exam, her abdomen is soft, obese, not distended, not tender. Discharge instructions: Increase oral fluids, increase vegetable fibers, increase amount of fresh vegetables in her diet, use Colace, milk of magnesia, coffee, and Dulcolax, to stimulate her intestine. Follow-up with her physician in 1 to 2 weeks, patient can shower and bathe, resume all pre-admission medications, high-fiber diet. - Additional Information Resuscitation Status: Full Code Discharge Diet: Other (Comments) - High-fiber diet Discharge Activity: Walk Frequently Home Medications: Atorvastatin Calcium [Lipitor 10 mg Tablet] 10 mg PO DAILY 05/24/19 Cetirizine HCl [Zyrtec 10 mg Tablet] 10 mg PO DAILY 05/24/19 Cyanocobalamin (Vitamin B-12) [Vitamin B-12 Inj 1000 Mcg/1 ml Vial] 1,000 mcg IM .MONTHLY 05/24/19 Duloxetine HCl [Cymbalta] 60 mg PO QHS 05/24/19 Fluticasone/Salmeterol [Advair 250-50 Diskus 14 Dose/Diskus] 1 inh IH Q12 05/24/19 Folic Acid 1 mg PO DAILY 05/24/19 Hydroxyzine HCl [Atarax 10 mg Tablet] 10 mg PO QHS MDD 20 mg 05/24/19 Metoclopramide HCl [Reglan 10 mg Tablet] 10 mg PO BID@05/24/19 Montelukast Sodium [Singulair 10 mg Tablet] 10 mg PO QHS 05/24/19 Omeprazole 20 mg PO BIDACBS 05/24/19 Sitagliptin Phosphate [Januvia 50 mg Tablet] 100 mg PO DAILY 05/24/19 Tolterodine Tartrate [Tolterodine Tartrate ER] 4 mg PO DAILY 05/24/19 History of Present Illiness History of Present Illness: LEILANI YADAV is a 53 year old female Physical Exam Vital Signs: Temp Pulse Resp BP Pulse Ox 98.0 F 80 18 134/71 H 94 05/25/19 11:13 05/25/19 11:13 05/25/19 11:13 05/25/19 11:13 05/25/19 11:13 Intake & Output 05/24/19 05/25/19 05/26/19 06:59 06:59 06:59 Intake Total 2130 4155 1129 Output Total 670 3 Balance 1460 4152 1129 Weight 179.5 kg 180.4 kg 180.4 kg Results Laboratory Results: WBC 9.5 10^3/uL (4.0-10.5) 05/24/19 04:55 RBC 4.54 10^6/uL (3.72-5.28) 05/24/19 04:55 Hgb 12.9 g/dL (12.0-15.5) 05/24/19 04:55 Hct 39.0 % (36.0-47.0) 05/24/19 04:55 MCV 86 fl (80-97) 05/24/19 04:55 MCH 28.3 pg (27.0-33.4) 05/24/19 04:55 MCHC 32.9 g/dL (32.0-36.0) 05/24/19 04:55 RDW 14.9 % (11.5-14.0) H 05/24/19 04:55 Plt Count 375 10^3/uL (150-450) 05/24/19 04:55 Lymph % (Auto) 12.7 % (13-45) L 05/24/19 04:55 [place] % (Auto) 3.2 % (3-13) 05/24/19 04:55 Eos % (Auto) 0.0 % (0-6) 05/24/19 04:55 Baso % (Auto) 0.4 % (0-2) 05/24/19 04:55 Absolute Neuts (auto) 7.9 10^3/uL (1.7-8.2) 05/24/19 04:55 Absolute Lymphs (auto) 1.2 10^3/uL (0.5-4.7) 05/24/19 04:55 Absolute Monos (auto) 0.3 10^3/uL (0.1-1.4) 05/24/19 04:55 Absolute Eos (auto) 0.0 10^3/uL (0.0-0.6) 05/24/19 04:55 Absolute Basos (auto) 0.0 10^3/uL (0.0-0.2) 05/24/19 04:55 Seg Neutrophils % 83.7 % (42-78) H 05/24/19 04:55 Sodium 140.2 mmol/L (137-145) 05/24/19 04:55 Potassium 4.7 mmol/L (3.6-5.0) 05/24/19 04:55 Chloride 101 mmol/L (98-107) 05/24/19 04:55 Carbon Dioxide 25 mmol/L (22-30) 05/24/19 04:55 Anion Gap 14 (5-19) 05/24/19 04:55 BUN 11 mg/dL (7-20) 05/24/19 04:55 Creatinine 0.60 mg/dL (0.52-1.25) 05/24/19 04:55 Est GFR ( Amer) > 60 (>60) 05/24/19 04:55 Est GFR (MDRD) Non-Af > 60 (>60) 05/24/19 04:55 Glucose 219 mg/dL (75-110) H 05/24/19 04:55 POC Glucose 212 mg/dL (70-110) H 05/25/19 11:35 Hemoglobin A1c % 8.8 % (4.7-6.0) H 05/23/19 10:07 Calcium 9.5 mg/dL (8.4-10.2) 05/24/19 04:55 Total Bilirubin 0.6 mg/dL (0.2-1.3) 05/23/19 10:07 Direct Bilirubin 0.1 mg/dL (0.0-0.4) 05/23/19 10:07 Neonat Total Bilirubin Not Reportable 05/23/19 10:07 Neonat Direct Bilirubin Not Reportable 05/23/19 10:07 Neonat Indirect Bili Not Reportable 05/23/19 10:07 AST 25 U/L (14-36) 05/23/19 10:07 ALT 37 U/L (<35) 05/23/19 10:07 Alkaline Phosphatase 161 U/L (38-126) H 05/23/19 10:07 Total Protein 7.5 g/dL (6.3-8.2) 05/23/19 10:07 Albumin 4.2 g/dL (3.5-5.0) 05/23/19 10:07 Lipase 38.4 U/L (23-300) 05/23/19 10:07 Urine Color YELLOW 05/23/19 10:07 Urine Appearance CLEAR 05/23/19 10:07 Urine pH 8.0 (5.0-9.0) 05/23/19 10:07 Ur Specific Kyle 1.014 05/23/19 10:07 Urine Protein NEGATIVE mg/dL (NEGATIVE) 05/23/19 10:07 Urine Glucose (UA) NEGATIVE mg/dL (NEGATIVE) 05/23/19 10:07 Urine Ketones NEGATIVE mg/dL (NEGATIVE) 05/23/19 10:07 Urine Blood NEGATIVE (NEGATIVE) 05/23/19 10:07 Urine Nitrite NEGATIVE (NEGATIVE) 05/23/19 10:07 Urine Bilirubin NEGATIVE (NEGATIVE) 05/23/19 10:07 Urine Urobilinogen NEGATIVE mg/dL (<2.0) 05/23/19 10:07 Ur Leukocyte Esterase NEGATIVE (NEGATIVE) 05/23/19 10:07 Urine WBC (Auto) 0 /HPF 05/23/19 10:07 Urine RBC (Auto) 1 /HPF 05/23/19 10:07 U Hyaline Cast (Auto) 1 /LPF 05/23/19 10:07 Squamous Epi Cells Auto 2 /HPF 05/23/19 10:07 Urine Mucus (Auto) RARE /LPF 05/23/19 10:07 Urine Ascorbic Acid NEGATIVE (NEGATIVE) 05/23/19 10:07 Impressions: KUB X-Ray 05/23/19 00:00 IMPRESSION: NG tube tip overlies the body of the stomach. Abdomen/Pelvis CT 05/23/19 10:42 IMPRESSION: Possible developing small bowel obstruction. Mildly dilated loops of jejunum deep to the umbilicus level with mild adjacent inflammatory changes and trace free fluid. Upper GI and Small Bowel X-Ray 05/24/19 07:00 IMPRESSION: Esophagus not evaluated due to NG-tube. Patient reports having hiatal hernia which was not evaluated due to NG-tube. NG tube in the stomach. Surgical clip in the you are right lower quadrant. 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 Contrast is seen in the colon. No evidence small bowel obstruction
[2019-05-25 16:14] VITALS: BP 131/61
== END 2019-05-25 18:46 | disposition home or self-care (01) | DRG 392 ==
LOC: ER 09:45 → EH 17:37 → 4N 19:21
PROVIDERS: ATTEND Surgery
PROC: 0D9670Z Drainage of Stomach with Drainage Device, Via Natural or Artificial Opening (ICD-10-PCS; principal; 2019-05-23)
DX: K59.09 Other constipation (principal); Z68.43 Body mass index [BMI] 50.0-59.9, adult; K43.9 Ventral hernia without obstruction or gangrene; K31.84 Gastroparesis; E66.01 Morbid (severe) obesity due to excess calories; E11.43 Type 2 diabetes mellitus with diabetic autonomic (poly)neuropathy; F32.9 Major depressive disorder, single episode, unspecified; Z90.49 Acquired absence of other specified parts of digestive tract; Z88.0 Allergy status to penicillin; Z88.2 Allergy status to sulfonamides; Z88.1 Allergy status to other antibiotic agents; Z88.8 Allergy status to other drugs, medicaments and biological substances; K21.9 Gastro-esophageal reflux disease without esophagitis; D64.9 Anemia, unspecified; J45.20 Mild intermittent asthma, uncomplicated; Z85.038 Personal history of other malignant neoplasm of large intestine; Z79.84 Long term (current) use of oral hypoglycemic drugs
CPT/HCPCS: 36415; 74018; 74177; 74249; 80048; 80053; 81001; 82962; 83036; 83690; 85025; 93005; 93010; 94799; 96361; 96374; 96375; 99285; C9113; J1200; J1650; J1815; J2270; J2405; J2765; J2930; J3010; J3490; J7030; S0028